=== PATIENT | male | born 1965 | race Hispanic/Latino ===

== ENCOUNTER 2018-07-18 19:26 | Emergency (ER) | payer BC ==
--- NOTE | 2018-07-18 20:39 | ER ---
Nurse's Notes [facility] Name: Ant Gross Sr Age: 53 yrs Sex: Male : 1965 Arrival Date: 07/18/2018 Time: 19:26 Bed 17 Private MD: Diagnosis: Cellulitis of neck Presentation: 07/18 19:36 Presenting complaint: Patient states: Abscess to back of neck for 4 days. Transition of aj care: patient was not received from another setting of care. Onset of symptoms was July 14, 2018. Risk Assessment: Do you want to hurt yourself or someone else? Patient reports no desire to harm self or others. Initial Sepsis Screen: Does the patient meet any 2 criteria? No. Patient's initial sepsis screen is negative. Does the patient have a suspected source of infection? No. Patient's initial sepsis screen is negative. Care prior to arrival: None. 19:36 Method Of Arrival: Ambulatory aj 19:36 Acuity: DAVID 3 aj Triage Assessment: 19:37 General: Appears in no apparent distress. comfortable, Behavior is calm, cooperative, aj appropriate for age. Pain: Complains of pain in base of the skull. Neuro: Level of Consciousness is awake, alert, obeys commands, Oriented to person, place, time, situation, Appropriate for age. Respiratory: Airway is patent Respiratory effort is even, unlabored, Respiratory pattern is regular, symmetrical. Derm: Skin is intact, is healthy with good turgor, Skin is pink, warm \T\ dry. normal, Abscess located on base of the skull. Historical: - Allergies: 19:37 No Known Allergies; aj - Home Meds: 19:37 None [Active]; aj - PMHx: 19:37 Diabetes - NIDDM; Hypertension; aj - PSHx: 19:37 None; aj - Immunization history:: Adult Immunizations up to date. - Social history:: Smoking status: Patient/guardian denies using tobacco. - Ebola Screening: : Patient negative for fever greater than or equal to 101.5 degrees Fahrenheit, and additional compatible Ebola Virus Disease symptoms Patient denies exposure to infectious person Patient denies travel to an Ebola-affected area in the 21 days before illness onset No symptoms or risks identified at this time. Screenin:44 Abuse screen: Denies threats or abuse. Denies injuries from another. Nutritional cc3 screening: No deficits noted. Tuberculosis screening: No symptoms or risk factors identified. Fall Risk Ambulatory Aid- None/Bed Rest/Nurse Assist (0 pts). Gait- Normal/Bed Rest/Wheelchair (0 pts) Mental Status- Oriented to own ability (0 pts). Assessment: 19:44 General: see triage assessment. cc3 20:30 Reassessment: Patient appears in no apparent distress at this time. Patient and/or cc3 family updated on plan of care and expected duration. Pain level reassessed. Patient is alert, oriented x 3, equal unlabored respirations, skin warm/dry/pink. 21:00 Reassessment: Patient appears in no apparent distress at this time. Patient and/or cc3 family updated on plan of care and expected duration. Pain level reassessed. Patient is alert, oriented x 3, equal unlabored respirations, skin warm/dry/pink. Patient discharged home with prescription given. No IV cannula in situ. Patient left ER vitally stable and ambulatory. Vital Signs: 19:37 BP 158 / 95; Pulse 70; Resp 19; Temp 97.1; Pulse Ox 97% on R/A; Weight 117.93 kg; aj Height 5 ft. 11 in. (180.34 cm); 20:45 BP 143 / 87; Pulse 72; Resp 18 S; Pulse Ox 97% on R/A; cc3 19:37 Body Mass Index 36.26 (117.93 kg, 180.34 cm) aj ED Course: 19:26 Patient arrived in ED. mr 19:37 Triage completed. aj 19:37 Arm band placed on left wrist. Patient placed in an exam room. aj 19:44 Radha Groves is Primary Nurse. cc3 19:44 Patient has correct armband on for positive identification. Bed in low position. Call cc3 light in reach. Side rails up X 1. Pulse ox on. NIBP on. 20:07 Rudy Merino NP is PHCP. pm1 20:07 Colt Ayers MD is Attending Physician. pm1 20:40 Zi Hankins MD is Referral Physician. pm1 21:00 No provider procedures requiring assistance completed. Patient did not have IV access cc3 during this emergency room visit. Administered Medications: 20:50 Drug: Tetanus-Diphtheria Toxoid Adult 0.5 ml {[employer] Set Up Operator: [employer]. Exp: cc3 09/18/2020. Lot #: [id number]. } Route: IM; Site: right deltoid; 21:00 Follow up: Response: No adverse reaction cc3 Point of Care Testing: Blood Glucose: 20:35 Blood Glucose: 271 mg/dL; wi Ranges: Outcome: 20:38 Discharge ordered by MD. pm1 21:00 Discharged to home ambulatory. cc3 21:00 Condition: stable 21:00 Discharge instructions given to patient, Instructed on discharge instructions, follow up and referral plans. medication usage, Demonstrated understanding of instructions, follow-up care, medications, Prescriptions given X 2. 21:06 Patient left the ED. cc3 Signatures: Sandra Smith RN RN aj Rivera, Mary mr Marinas, Patrick, WICHO ASSESSMENT EXPERT pm1 Meron Patricia mt, Charlene cc3
--- NOTE | 2018-07-18 20:39 | EDPHYS ---
Physician Documentation [facility] Name: Ant Gross Sr Age: 53 yrs Sex: Male : 1965 Arrival Date: 07/18/2018 Time: 19:26 Bed 17 Private MD: ED Physician Colt Ayers HPI: 07/18 20:30 This 53 yrs old Male presents to ER via Ambulatory with complaints of Knot on pm1 Neck. 20:30 Onset: The symptoms/episode began/occurred 4 day(s) ago. Associated signs and symptoms: pm1 Pertinent negatives: fever. 20:30 The patient presents with cellulitis of the posterior cervical area. Possible cause(s): pm1 unknown. Modifying factors: the symptoms are alleviated by nothing, the symptoms are aggravated by touching, Squeezing. Son tried to needle aspirate yesterday without any drainage. The patient has experienced a previous episode, approximately 1 years ago. Historical: - Allergies: 19:37 No Known Allergies; aj - Home Meds: 19:37 None [Active]; aj - PMHx: 19:37 Diabetes - NIDDM; Hypertension; aj - PSHx: 19:37 None; aj - Immunization history:: Adult Immunizations up to date. - Social history:: Smoking status: Patient/guardian denies using tobacco. - Ebola Screening: : Patient negative for fever greater than or equal to 101.5 degrees Fahrenheit, and additional compatible Ebola Virus Disease symptoms Patient denies exposure to infectious person Patient denies travel to an Ebola-affected area in the 21 days before illness onset No symptoms or risks identified at this time. ROS: 20:30 Constitutional: Negative for fever, chills, and weight loss, Eyes: Negative for injury, pm1 pain, redness, and discharge, ENT: Negative for injury, pain, and discharge, Neck: Negative for injury, pain, and swelling, Cardiovascular: Negative for chest pain, palpitations, and edema, Respiratory: Negative for shortness of breath, cough, wheezing, and pleuritic chest pain, Abdomen/GI: Negative for abdominal pain, nausea, vomiting, diarrhea, and constipation, Back: Negative for injury and pain, MS/Extremity: Negative for injury and deformity. 20:30 Neuro: Negative for headache, weakness, numbness, tingling, and seizure. 20:30 Skin: Positive for cellulitis, of the posterior cervical area. Exam: 20:30 Constitutional: This is a well developed, well nourished patient who is awake, alert, pm1 and in no acute distress. Head/Face: Normocephalic, atraumatic. Eyes: Pupils equal round and reactive to light, extra-ocular motions intact. Lids and lashes normal. Conjunctiva and sclera are non-icteric and not injected. Cornea within normal limits. Periorbital areas with no swelling, redness, or edema. ENT: Nares patent. No nasal discharge, no septal abnormalities noted. Tympanic membranes are normal and external auditory canals are clear. Oropharynx with no redness, swelling, or masses, exudates, or evidence of obstruction, uvula midline. Mucous membranes moist. 20:30 Neck: Trachea midline, no thyromegaly or masses palpated, and no cervical lymphadenopathy. Supple, full range of motion without nuchal rigidity, or vertebral point tenderness. No Meningismus. Chest/axilla: Normal chest wall appearance and motion. Nontender with no deformity. No lesions are appreciated. Cardiovascular: Regular rate and rhythm with a normal S1 and S2. No gallops, murmurs, or rubs. Normal PMI, no JVD. No pulse deficits. Respiratory: Lungs have equal breath sounds bilaterally, clear to auscultation and percussion. No rales, rhonchi or wheezes noted. No increased work of breathing, no retractions or nasal flaring. Abdomen/GI: Soft, non-tender, with normal bowel sounds. No distension or tympany. No guarding or rebound. No evidence of tenderness throughout. Back: No spinal tenderness. No costovertebral tenderness. Full range of motion. 20:30 MS/ Extremity: Pulses equal, no cyanosis. Neurovascular intact. Full, normal range of motion. 20:30 Skin: Appearance: normal except for affected area, cellulitis, that is mild, on the posterior cervical area, needle aspiration performed and no purulent drainage obtained. No fluctuance present. 20:30 Neuro: Orientation: is normal, Motor: is normal, moves all fours. Vital Signs: 19:37 BP 158 / 95; Pulse 70; Resp 19; Temp 97.1; Pulse Ox 97% on R/A; Weight 117.93 kg; aj Height 5 ft. 11 in. (180.34 cm); 20:45 BP 143 / 87; Pulse 72; Resp 18 S; Pulse Ox 97% on R/A; cc3 19:37 Body Mass Index 36.26 (117.93 kg, 180.34 cm) aj MDM: 20:07 Patient medically screened. pm1 20:37 Data reviewed: vital signs. Data interpreted: Pulse oximetry: on room air is 97 %. pm1 Interpretation: normal. Counseling: I had a detailed discussion with the patient and/or guardian regarding: the historical points, exam findings, and any diagnostic results supporting the discharge/admit diagnosis, lab results, the need for outpatient follow up, to return to the emergency department if symptoms worsen or persist or if there are any questions or concerns that arise at home. 20:37 ED course: Instructed patient to start taking his diabetes medications again. His pm1 compliance is the likely cause of his cellulitis to his neck. 07/18 20:33 Order name: Finger Stick; Complete Time: 20:51 pm1 Administered Medications: 20:50 Drug: Tetanus-Diphtheria Toxoid Adult 0.5 ml {Research And Development Manager: [employer]. Exp: cc3 09/18/2020. Lot #: [id number]. } Route: IM; Site: right deltoid; 21:00 Follow up: Response: No adverse reaction cc3 Point of Care Testing: Blood Glucose: 20:35 Blood Glucose: 271 mg/dL; ne Ranges: Critical Glucose Levels:Adult <50 mg/dl or >400 mg/dl <40 mg/dl or >180 mg/dl Disposition: 07/19 06:06 Co-signature as Attending Physician, Colt Ayers MD I agree with the assessment and gray plan of care. Disposition: 07/18/18 20:38 Discharged to Home. Impression: Cellulitis of neck. - Condition is Stable. - Discharge Instructions: Cellulitis, Adult. - Prescriptions for Bactrim DS 800- 160 mg Oral Tablet - take 1 tablet by ORAL route every 12 hours for 10 days; 20 tablet. Clindamycin HCl 300 mg Oral Capsule - take 1 capsule by ORAL route every 6 hours for 10 days; 40 capsule. - Medication Reconciliation Form, Thank You Letter, Antibiotic Education form. - Follow up: Emergency Department; When: As needed; Reason: Worsening of condition. Follow up: Private Physician; When: 2 - 3 days; Reason: Recheck today's complaints, Continuance of care, Re-evaluation by your physician. Follow up: Zi Hankins MD; When: 2 - 3 days; Reason: Recheck today's complaints, Continuance of care, Re-evaluation by your physician. - Problem is new. - Symptoms have improved. Signatures: Sandra Smith RN RN aj Anderson, Corey, MD MD cha Marinas, Patrick, WARDROBE CUSTODIAN WARDROBE CUSTODIAN pm1 Wadefranco Radha cc3 Corrections: (The following items were deleted from the chart) 07/18 20:40 20:38 07/18/2018 20:38 Discharged to Home. Impression: Cellulitis of neck. Condition is pm1 Stable. Forms are Medication Reconciliation Form, Thank You Letter, Antibiotic Education, Prescription Opioid Use. Follow up: Emergency Department; When: As needed; Reason: Worsening of condition. Follow up: Private Physician; When: 2 - 3 days; Reason: Recheck today's complaints, Continuance of care, Re-evaluation by your physician. Problem is new. Symptoms have improved. pm1 21:06 20:40 07/18/2018 20:38 Discharged to Home. Impression: Cellulitis of neck. Condition is cc3 Stable. Discharge Instructions: Cellulitis, Adult. Prescriptions for Bactrim DS 800-160 mg Oral Tablet - take 1 tablet by ORAL route every 12 hours for 10 days; 20 tablet, Clindamycin HCl 300 mg Oral Capsule - take 1 capsule by ORAL route every 6 hours for 10 days; 40 capsule. and Forms are Medication Reconciliation Form, Thank You Letter, Antibiotic Education. Follow up: Emergency Department; When: As needed; Reason: Worsening of condition. Follow up: Private Physician; When: 2 - 3 days; Reason: Recheck today's complaints, Continuance of care, Re-evaluation by your physician. Follow up: Zi Hankins; When: 2 - 3 days; Reason: Recheck today's complaints, Continuance of care, Re-evaluation by your physician. Problem is new. Symptoms have improved. pm1
[2018-07-18] MEDS ORDERED: TETANUS & DIPHTHERIA TOX,ADULT 0.5 ML VIAL ONE (21:03)
[2018-07-18 21:19] VITALS: BP 158/95; TEMP 97.1; O2SAT 97
== END 2018-07-18 21:06 | disposition home or self-care (01) ==
LOC: ER 19:26
DX: L03.221 Cellulitis of neck (principal); I10 Essential (primary) hypertension; E11.9 Type 2 diabetes mellitus without complications; Z23 Encounter for immunization
CPT/HCPCS: 82962; 90714; 99283

== ENCOUNTER 2018-10-04 10:48 | Emergency (ER) | payer BC ==
--- NOTE | 2018-10-04 12:27 | RAD REPORT ---
EXAM DESCRIPTION: RAD - Chest Pa And Lat (2 Views) - 10/04/2018 12:21 pm CLINICAL HISTORY: COUGH Chest pain. COMPARISON: CHEST SINGLE VIEW dated 10/04/2012; CHEST SINGLE VIEW dated 10/04/2010 FINDINGS: Peribronchial cuffing is seen in both hilar regions with mild interstitial prominence. No focal consolidation typical of pneumonia identified. The heart is normal in size. No displaced fractu res. IMPRESSION: Findings suggest underlying viral pneumonitis and/or reactive airway disease.
--- NOTE | 2018-10-04 12:35 | ER ---
Nurse's Notes [facility] Name: Ant Gross Sr Age: 53 yrs Sex: Male : 1965 Arrival Date: 10/04/2018 Time: 10:51 Bed 10 Private MD: Diagnosis: Acute upper respiratory infection, unspecified;Diarrhea, unspecified Presentation: 10/04 10:53 Presenting complaint: Patient states: mariusz been sick since Sunday, diarrhea, Sunday, hj back cramps, body aches and cough and fever; took Robitussin last night; reports sore throat;. Transition of care: patient was not received from another setting of care. Onset of symptoms was October 04, 2018. Risk Assessment: Do you want to hurt yourself or someone else? Patient reports no desire to harm self or others. Initial Sepsis Screen: Does the patient meet any 2 criteria? No. Patient's initial sepsis screen is negative. Does the patient have a suspected source of infection? No. Patient's initial sepsis screen is negative. Care prior to arrival: None. 10:53 Method Of Arrival: Ambulatory 10:53 Acuity: DAVID 4 hj Triage Assessment: 10:55 General: Appears in no apparent distress. uncomfortable, Behavior is calm, cooperative, hj appropriate for age. Pain: Complains of pain in throat, body. Historical: - Allergies: 10:55 No Known Allergies; hj - Home Meds: 10:55 None [Active]; hj - PMHx: 10:55 Diabetes - NIDDM; Hypertension; hj - PSHx: 10:55 None; hj - Immunization history:: Adult Immunizations not up to date. - Social history:: Smoking status: Patient/guardian denies using tobacco, Patient/guardian denies using alcohol. - Ebola Screening: : Patient negative for fever greater than or equal to 101.5 degrees Fahrenheit, and additional compatible Ebola Virus Disease symptoms Patient denies exposure to infectious person Patient denies travel to an Ebola-affected area in the 21 days before illness onset. Screenin:56 Abuse screen: Denies threats or abuse. Denies injuries from another. Nutritional hj screening: No deficits noted. Tuberculosis screening: No symptoms or risk factors identified. Fall Risk None identified. Assessment: 11:30 General: Appears in no apparent distress. comfortable, Behavior is calm, cooperative. iw Pain: Complains of pain in head. Neuro: Level of Consciousness is awake, alert, obeys commands, Oriented to person, place, time, situation, Moves all extremities. Full function. Cardiovascular: Patient's skin is warm and dry. Respiratory: Reports cough that is Respiratory effort is even, unlabored, Respiratory pattern is regular, symmetrical, Breath sounds are clear bilaterally. GI: Reports diarrhea. Derm: Skin is intact, is healthy with good turgor. Musculoskeletal: Range of motion: intact in all extremities. Vital Signs: 10:56 BP 125 / 84; Pulse 74; Resp 18; Temp 99.8(O); Pulse Ox 98% on R/A; Weight 108.86 kg; hj Height 5 ft. 11 in. (180.34 cm); Pain 9/10; 10:56 Body Mass Index 33.47 (108.86 kg, 180.34 cm) ED Course: 10:51 Patient arrived in ED. mr 10:55 Triage completed. hj 10:56 Arm band placed on left wrist. hj 10:56 Patient has correct armband on for positive identification. Bed in low position. Call light in reach. Side rails up X 1. 10:58 Mary Almanzar, JUSTO is Primary Nurse. iw 11:01 Aly Lynn PA is PHCP. jr8 11:01 Caio Acuna MD is Attending Physician. jr8 12:20 X-ray completed. Patient tolerated procedure well. Patient moved to radiology via jb2 wheelchair. Patient moved back from radiology. 12:21 XRAY Chest Pa And Lat (2 Views) In Process Unspecified. EDMS 13:21 No provider procedures requiring assistance completed. Patient did not have IV access iw during this emergency room visit. Administered Medications: No medications were administered Point of Care Testing: Blood Glucose: 12:36 Blood Glucose: 296 mg/dL; mh5 Ranges: Outcome: 12:34 Discharge ordered by . jr8 13:21 Discharged to home ambulatory. iw 13:21 Condition: good 13:21 Discharge instructions given to patient, Instructed on discharge instructions, follow up and referral plans. medication usage, Demonstrated understanding of instructions, follow-up care, medications, Prescriptions given X 13:21 Prescriptions given X 3. iw 13:22 Patient left the ED. Signatures: Dispatcher [employer] EDMS Ana Ge RN RN ch Rivera, Meri mr Buechter, Donaldo jb2 Mary Almanzar, Aly Lomeli RN, PA PA jr8 Virgil Silva RN RN hj Martinez, Maria 5 Corrections: (The following items were deleted from the chart) 10:58 10:56 Pulse 74bpm; Resp 18bpm; Pulse Ox 98% RA; Temp 99.8F Oral; 108.86 kg; Height 5 hj ft. 11 in.; BMI: 33.4; Pain 06/10; hj
--- NOTE | 2018-10-04 12:36 | EDPHYS ---
Physician Documentation [facility] Name: Ant Gross Sr Age: 53 yrs Sex: Male : 1965 Arrival Date: 10/04/2018 Time: 10:51 Bed 10 Private MD: ED Physician Caio Acuna HPI: 10/04 11:43 This 53 yrs old Male presents to ER via Ambulatory with complaints of Flu jr8 Symptoms. 11:43 Patient complains to nausea, diarrhea, body aches, chills, cough, sore throat, jr8 rhinorrhea since this past Sunday. Feeling weak and fatigued . Severity of symptoms: At their worst the symptoms were moderate in the emergency department the symptoms are unchanged. The patient has not experienced similar symptoms in the past. The patient has not recently seen a physician. Historical: - Allergies: 10:55 No Known Allergies; hj - Home Meds: 10:55 None [Active]; hj - PMHx: 10:55 Diabetes - NIDDM; Hypertension; hj - PSHx: 10:55 None; hj - Immunization history:: Adult Immunizations not up to date. - Social history:: Smoking status: Patient/guardian denies using tobacco, Patient/guardian denies using alcohol. - Ebola Screening: : Patient negative for fever greater than or equal to 101.5 degrees Fahrenheit, and additional compatible Ebola Virus Disease symptoms Patient denies exposure to infectious person Patient denies travel to an Ebola-affected area in the 21 days before illness onset. ROS: 11:43 Eyes: Negative for injury, pain, redness, and discharge, Neck: Negative for injury, jr8 pain, and swelling, Cardiovascular: Negative for chest pain, palpitations, and edema, Back: Negative for injury and pain, MS/Extremity: Negative for injury and deformity, Skin: Negative for injury, rash, and discoloration, Neuro: Negative for headache, weakness, numbness, tingling, and seizure. 11:43 Constitutional: Positive for body aches, chills, fever, malaise. 11:43 ENT: Positive for rhinorrhea, sinus congestion, sore throat. 11:43 Respiratory: Positive for cough, Negative for shortness of breath, sputum production, wheezing. 11:43 Abdomen/GI: Positive for nausea, diarrhea, Negative for abdominal pain, vomiting, abdominal cramps, abdominal distension, anorexia, dysphagia, hematemesis, black/tarry stool, rectal pain, rectal bleeding, bowel incontinence, flatulence. Exam: 11:45 Eyes: Pupils equal round and reactive to light, extra-ocular motions intact. Lids and jr8 lashes normal. Conjunctiva and sclera are non-icteric and not injected. Cornea within normal limits. Periorbital areas with no swelling, redness, or edema. ENT: Nares patent. No nasal discharge, no septal abnormalities noted. Tympanic membranes are normal and external auditory canals are clear. Oropharynx with no redness, swelling, or masses, exudates, or evidence of obstruction, uvula midline. Mucous membranes moist. Neck: Trachea midline, no thyromegaly or masses palpated, and no cervical lymphadenopathy. Supple, full range of motion without nuchal rigidity, or vertebral point tenderness. No Meningismus. Cardiovascular: Regular rate and rhythm with a normal S1 and S2. No gallops, murmurs, or rubs. Normal PMI, no JVD. No pulse deficits. Respiratory: Lungs have equal breath sounds bilaterally, clear to auscultation and percussion. No rales, rhonchi or wheezes noted. No increased work of breathing, no retractions or nasal flaring. Abdomen/GI: Soft, non-tender, with normal bowel sounds. No distension or tympany. No guarding or rebound. No evidence of tenderness throughout. Back: No spinal tenderness. No costovertebral tenderness. Full range of motion. Skin: Warm, dry with normal turgor. Normal color with no rashes, no lesions, and no evidence of cellulitis. MS/ Extremity: Pulses equal, no cyanosis. Neurovascular intact. Full, normal range of motion. Neuro: Awake and alert, GCS 15, oriented to person, place, time, and situation. Cranial nerves II-XII grossly intact. Motor strength 5/5 in all extremities. Sensory grossly intact. Cerebellar exam normal. Normal gait. Vital Signs: 10:56 BP 125 / 84; Pulse 74; Resp 18; Temp 99.8(O); Pulse Ox 98% on R/A; Weight 108.86 kg; hj Height 5 ft. 11 in. (180.34 cm); Pain 9/10; 10:56 Body Mass Index 33.47 (108.86 kg, 180.34 cm) hj MDM: 11:01 Patient medically screened. jr8 12:33 Data reviewed: vital signs, nurses notes, lab test result(s), radiologic studies, plain jr8 films, and as a result, I will discharge patient. Data interpreted: Pulse oximetry: on room air is 98 %. Interpretation: normal. Counseling: I had a detailed discussion with the patient and/or guardian regarding: the historical points, exam findings, and any diagnostic results supporting the discharge/admit diagnosis, lab results, radiology results, the need for outpatient follow up, a family practitioner, to return to the emergency department if symptoms worsen or persist or if there are any questions or concerns that arise at home. 10/04 10:57 Order name: Flu; Complete Time: 11:35 10/04 10:57 Order name: Strep; Complete Time: 11:35 10/04 11:22 Order name: Throat Culture EDMS 10/04 11:35 Order name: XRAY Chest Pa And Lat (2 Views); Complete Time: 12:30 jr8 Administered Medications: No medications were administered Point of Care Testing: Blood Glucose: 12:36 Blood Glucose: 296 mg/dL; mh5 Ranges: Critical Glucose Levels:Adult <50 mg/dl or >400 mg/dl <40 mg/dl or >180 mg/dl Disposition: 10/04/18 12:34 Discharged to Home. Impression: Acute upper respiratory infection, unspecified, Diarrhea, unspecified. - Condition is Stable. - Discharge Instructions: Diarrhea, Adult, Upper Respiratory Infection, Adult. - Prescriptions for Tessalon Perles 100 mg Oral Capsule - take 1 capsule by ORAL route every 8 hours As needed; 15 capsule. Albuterol Sulfate 90 mcg/actuation - inhale 1-2 puff by INHALATION route every 4-6 hours; 1 Inhaler. Guaifenesin AC 10- 100 mg/5 mL Oral Liquid - take 10 milliliter by ORAL route every 4 hours As needed; 240 milliliter. Zofran 4 mg Oral Tablet - take 1 tablet by ORAL route every 12 hours As needed; 20 tablet. - Medication Reconciliation Form, Thank You Letter, Antibiotic Education, Prescription Opioid Use form. - Follow up: Private Physician; When: 2 - 3 days; Reason: Recheck today's complaints, Continuance of care, Re-evaluation by your physician. - Problem is new. - Symptoms have improved. Addendum: 10/17/2018 07:27 Co-signature as Attending Physician, Caio Acuna MD I agree with the assessment and k plan of care. Signatures: Dispatcher [employer] EDMS Ana Ge, RN RN Caio Acuna MD MD [facility] Aly Lynn PA PA jr8 Virgil Silva RN RN Corrections: (The following items were deleted from the chart) 10/04 13:22 12:34 10/04/2018 12:34 Discharged to Home. Impression: Acute upper respiratory ch infection, unspecified; Diarrhea, unspecified. Condition is Stable. Forms are Medication Reconciliation Form, Thank You Letter, Antibiotic Education, Prescription Opioid Use. Follow up: Private Physician; When: 2 - 3 days; Reason: Recheck today's complaints, Continuance of care, Re-evaluation by your physician. Problem is new. Symptoms have improved. jr8
[2018-10-04 13:28] VITALS: BP 125/84; TEMP 99.8; O2SAT 98
== END 2018-10-04 13:22 | disposition home or self-care (01) ==
LOC: ER 10:48
DX: J06.9 Acute upper respiratory infection, unspecified (principal); R19.7 Diarrhea, unspecified; I10 Essential (primary) hypertension
CPT/HCPCS: 71046; 82962; 87070; 87081; 87804; 99283

== ENCOUNTER 2021-04-16 08:43 | Emergency (ER) | payer BC ==
--- NOTE | 2021-04-16 09:25 | EDPHYS ---
Physician Documentation [facility] Name: Ant Gross Sr Age: 56 yrs Sex: Male : 1965 Arrival Date: 04/16/2021 Time: 08:45 Bed 24 Private MD: Candace Bolanos ED Physician Mele Zepeda HPI: 04/16 09:23 This 56 yrs old Male presents to ER via Ambulatory with complaints of Facial pm1 Swelling. 17:09 The patient presents with pain, swelling. The problem is located in the upper left pm1 central incisor, upper left lateral incisor and upper left cuspid. Onset: The symptoms/episode began/occurred 2 day(s) ago. Duration: The symptoms are continuous. Modifying factors: The symptoms are alleviated by nothing, the symptoms are aggravated by warm compress . Associated signs and symptoms: Pertinent positives: swelling, Pertinent negatives: fever, inability to eat. Severity of symptoms: in the emergency department the symptoms are actually worse. The patient has experienced similar episodes in the past, several times. The patient has not recently seen a physician. Historical: - Allergies: 08:54 No Known Allergies; ll1 - PMHx: 08:54 Diabetes - NIDDM; Hypertension; ll1 - PSHx: 08:54 None; ll1 - Immunization history:: Client reports having NOT received the Covid vaccine. Flu vaccine is not up to date. - Social history:: Smoking status: Patient denies any tobacco usage or history of. ROS: 17:09 Constitutional: Negative for fever, chills, and weight loss. pm1 17:09 Cardiovascular: Negative for chest pain, palpitations, and edema, Respiratory: Negative for shortness of breath, cough, wheezing, and pleuritic chest pain. 17:09 MS/Extremity: Negative for injury and deformity, Skin: Negative for injury, rash, and discoloration. 17:09 ENT: Positive for dental pain, Negative for ear pain, sore throat, difficulty swallowing, difficulty handling secretions. 17:09 All other systems are negative. Exam: 17:09 Constitutional: This is a well developed, well nourished patient who is awake, alert, pm1 and in no acute distress. Head/Face: Normocephalic, atraumatic. 17:09 Skin: Warm, dry with normal turgor. Normal color with no rashes, no lesions, and no evidence of cellulitis. MS/ Extremity: Pulses equal, no cyanosis. Neurovascular intact. Full, normal range of motion. 17:09 ENT: Mouth: Lips: normal, Oral mucosa: normal, Gums: normal with healthy appearance, Dental exam: dental caries, that is severe, diffusely, specifically in the upper left central incisor (#9), upper left lateral incisor (#10) and upper left cuspid (#11), negative for trismus. 17:09 Cardiovascular: Rate: normal, Rhythm: regular, Pulses: no pulse deficits are appreciated. 17:09 Respiratory: Exam negative for acute changes, respiratory distress, shortness of breath. 17:09 Neuro: Exam negative for acute changes, Orientation: is normal, Mentation: is normal, Motor: is normal, moves all fours. Vital Signs: 08:55 BP 187 / 93; Pulse 63; Resp 17; Temp 97.5; Pulse Ox 96% ; Weight 117.93 kg; Height 5 ll1 ft. 11 in. (180.34 cm); Pain 10/10; 10:02 BP 168 / 90; Pulse 70; Resp 17; Pulse Ox 96% ; ss 08:55 Body Mass Index 36.26 (117.93 kg, 180.34 cm) ll1 MDM: 09:05 Patient medically screened. pm1 09:23 Data reviewed: vital signs. Data interpreted: Pulse oximetry: on room air is 96 %. pm1 Interpretation: normal. Counseling: I had a detailed discussion with the patient and/or guardian regarding: the historical points, exam findings, and any diagnostic results supporting the discharge/admit diagnosis, the need for outpatient follow up, for definitive care, a dentist, to return to the emergency department if symptoms worsen or persist or if there are any questions or concerns that arise at home. 09:26 ED course: [place] reviewed. Patient found but no prescriptions. pm1 Administered Medications: 09:42 Drug: Clindamycin 600 mg Route: IM; Site: right gluteus; ss 10:02 Follow up: Response: No adverse reaction ss Disposition: 10:06 Co-signature as Attending Physician, Mele Zepeda MD. rn Disposition Summary: 04/16/21 09:24 Discharge Ordered Location: Home pm1 Problem: new pm1 Symptoms: have improved pm1 Condition: Stable pm1 Diagnosis - Periapical abscess without sinus pm1 Followup: pm1 - With: Emergency Department - When: As needed - Reason: Worsening of condition Followup: pm1 - With: Private Physician - When: 2 - 3 days - Reason: Recheck today's complaints, Continuance of care, Re-evaluation by your physician Discharge Instructions: - Discharge Summary Sheet pm1 - Dental Pain pm1 - Diet and Dental Disease pm1 Forms: - Medication Reconciliation Form pm1 - Thank You Letter pm1 - Antibiotic Education pm1 - Prescription Opioid Use pm1 Prescriptions: - Clindamycin HCl 300 mg Oral Capsule - take 1 capsule by ORAL route every 6 hours for 10 days; 40 capsule; Refills: 0, pm1 Product Selection Permitted - Tramadol 50 mg Oral Tablet - take 1 tablet by ORAL route every 8 hours as needed; 12 tablet; Refills: 0, pm1 Product Selection Permitted Signatures: Mele Zepeda MD MD rn Smirch, Shelby, RN RN ss Rudy Merino, [employer] pm1 Shirley Oconnor RN RN 1
--- NOTE | 2021-04-16 09:25 | ER ---
Nurse's Notes [facility] Name: Ant Gross Sr Age: 56 yrs Sex: Male : 1965 Arrival Date: 04/16/2021 Time: 08:45 Bed 24 Private MD: Candace Bolanos Diagnosis: Periapical abscess without sinus Presentation: 04/16 08:55 Chief complaint: Patient states: L upper jaw tooth pain for 2 days. Swelling to L side ll1 of face started throughout the night. Feels hot, but no known fever. + PETTIT. Coronavirus screen: Client denies travel out of the [place] in the last 14 days. At this time, the client does not indicate any symptoms associated with coronavirus-19. Ebola Screen: Patient denies travel to an Ebola-affected area in the 21 days before illness onset. Initial Sepsis Screen: Does the patient meet any 2 criteria? No. Patient's initial sepsis screen is negative. Does the patient have a suspected source of infection? No. Patient's initial sepsis screen is negative. Risk Assessment: Do you want to hurt yourself or someone else? Patient reports no desire to harm self or others. Onset of symptoms was April 15, 2021. 08:55 Method Of Arrival: Ambulatory ll1 08:55 Acuity: DAVID 4 ll1 Triage Assessment: 08:56 General: Appears uncomfortable, Behavior is calm, cooperative, appropriate for age. ss Pain: Complains of pain in L upper jaw Quality of pain is described as aching, throbbing, Aggravated by eating, drinking. EENT: Reports pain in L upper jaw tooth pain. Neuro: No deficits noted. Cardiovascular: No deficits noted. Respiratory: No deficits noted. Historical: - Allergies: 08:54 No Known Allergies; ll1 - PMHx: 08:54 Diabetes - NIDDM; Hypertension; ll1 - PSHx: 08:54 None; ll1 - Immunization history:: Client reports having NOT received the Covid vaccine. Flu vaccine is not up to date. - Social history:: Smoking status: Patient denies any tobacco usage or history of. Screenin:01 Abuse screen: Denies threats or abuse. Nutritional screening: No deficits noted. ss Tuberculosis screening: No symptoms or risk factors identified. Fall Risk Total Martin Fall Scale indicates No Risk (0-24 pts). Vital Signs: 08:55 BP 187 / 93; Pulse 63; Resp 17; Temp 97.5; Pulse Ox 96% ; Weight 117.93 kg; Height 5 ll1 ft. 11 in. (180.34 cm); Pain 10/10; 10:02 BP 168 / 90; Pulse 70; Resp 17; Pulse Ox 96% ; ss 08:55 Body Mass Index 36.26 (117.93 kg, 180.34 cm) ll1 ED Course: 08:45 Patient arrived in ED. mr 08:46 Candace Bolanos is Private Physician. mr 08:54 Arm band placed on. ll1 08:57 Triage completed. ll1 09:05 Rud[facility] Merino [facility]. pm1 09:05 Mele Zepeda MD is Attending Physician. pm1 10:01 Patient has correct armband on for positive identification. Bed in low position. Call ss light in reach. Side rails up X 1. Cardiac monitoring not applicable on this patient. 10:02 No provider procedures requiring assistance completed. Patient did not have IV access ss during this emergency room visit. Administered Medications: 09:42 Drug: Clindamycin 600 mg Route: IM; Site: right gluteus; ss 10:02 Follow up: Response: No adverse reaction ss Outcome: 09:24 Discharge ordered by . pm1 10:02 Discharged to home ambulatory. ss 10:02 Condition: stable 10:02 Discharge instructions given to patient, Instructed on discharge instructions, follow up and referral plans. no drinking with medication, medication usage, Demonstrated understanding of instructions, follow-up care, medications, Prescriptions given X 2. 10:03 Patient left the ED. ss Signatures: Meri Hensley Shelby, RN RN ss Rudy Merino, [employer] pm1 Shirley Oconnor RN RN ll1
[2021-04-16] MEDS ORDERED: CLINDAMYCIN IV 150 MG/ML (4 mL) VIAL ONE (09:59)
[2021-04-16 10:09] VITALS: TEMP 97.5; O2SAT 96
[2021-04-16 10:11] VITALS: BP 168/90
== END 2021-04-16 10:03 | disposition home or self-care (01) ==
LOC: ER 08:43
DX: K04.7 Periapical abscess without sinus (principal); I10 Essential (primary) hypertension
CPT/HCPCS: 96372; 99283; S0077

== ENCOUNTER 2022-05-22 23:21 | Emergency (ER) | payer BC ==
[2022-05-23] MEDS ORDERED: NA CHLORIDE 0.9% 500 ML ONE (00:20)
[2022-05-23] MEDS ORDERED: ONDANSETRON 4 MG/2 ML VIAL ONE (00:20)
[2022-05-23 00:58] LABS: Absolute Lymphocytes (CBC) 1.3 K/uL (0.7-4.9); Hematocrit 36.7 % (39.6-49.0); Lymphocytes % 24.6 % (15.3-44.8); MCV 83.4 fL (80-100); MPV 7.3 fL (7.6-11.3)
[2022-05-23 01:05] LABS: Magnesium 2.2 mg/dL (1.8-2.4); Potassium 3.5 mmol/L (3.5-5.1)
[2022-05-23] MEDS ORDERED: BEBTELOVIMAB 175 MG/2 ML VIAL IV ONE (01:08)
--- NOTE | 2022-05-23 01:38 | ER ---
Nurse's Notes [facility] Name: Ant Gross Sr Age: 57 yrs Sex: Male : 1965 Arrival Date: 05/22/2022 Time: 23:25 Bed Treatment Private MD: Diagnosis: Pneumonia due to SARS-associated coronavirus Presentation: 05/22 23:37 Chief complaint: Patient states: Pt reports cough, headache, sore throat and positive kb3 home covid test this evening. Coronavirus screen: Vaccine status: Patient reports being unvaccinated. Client denies travel out of the [place] in the last 14 days. Ebola Screen: Patient negative for fever greater than or equal to 101.5 degrees Fahrenheit, and additional compatible Ebola Virus Disease symptoms Patient denies exposure to infectious person. Patient denies travel to an Ebola-affected area in the 21 days before illness onset. No symptoms or risks identified at this time. Initial Sepsis Screen: Does the patient meet any 2 criteria? No. Patient's initial sepsis screen is negative. Does the patient have a suspected source of infection? No. Patient's initial sepsis screen is negative. Risk Assessment: Do you want to hurt yourself or someone else? Patient reports no desire to harm self or others. Onset of symptoms was May 21, 2022. 23:37 Method Of Arrival: Ambulatory kb3 23:37 Acuity: DAVID 4 kb3 Triage Assessment: 23:40 General: Appears in no apparent distress. ill, unkempt, Behavior is calm, cooperative. kb3 Pain: Complains of pain in head, chest, abdomen, pelvis, right arm, left arm, right leg and left leg Pain does not radiate. Pain currently is 10 out of 10 on a pain scale. Quality of pain is described as aching. Historical: - Allergies: 23:40 No Known Allergies; kb3 - PMHx: 23:40 Diabetes - NIDDM; Hypertension; kb3 - Immunization history:: Adult Immunizations up to date, Client reports having NOT received the Covid vaccine. Last tetanus immunization: up to date. - Social history:: Smoking status: Patient denies any tobacco usage or history of. Screenin/23 00:25 Abuse screen: Denies threats or abuse. Denies injuries from another. Nutritional tw5 screening: No deficits noted. Tuberculosis screening: No symptoms or risk factors identified. Fall Risk None identified. Assessment: 05/22 23:50 General: Reports "I feel like I have been run over by a truck. I tested postive for tw5 covid at home.". Neuro: No deficits noted. Respiratory: No deficits noted. 05/23 00:25 Reassessment: Patient appears in no apparent distress at this time. No changes from tw5 previously documented assessment. Patient and/or family updated on plan of care and expected duration. Pain level reassessed. Patient is alert, oriented x 3, equal unlabored respirations, skin warm/dry/pink. 02:10 Reassessment: Patient states feeling better. Patient states symptoms have improved. tw5 Vital Signs: 05/22 23:37 BP 175 / 90; Pulse 65; Resp 18; Temp 96.9; Pulse Ox 100% ; Weight 136.08 kg; Height 5 kb3 ft. 11 in. (180.34 cm); Pain 10/10; 05/23 00:25 BP 143 / 79; Pulse 58; Resp 18; Pulse Ox 97% on R/A; Pain 0/10; tw5 01:08 BP 135 / 75; Pulse 57; Resp 18; Pulse Ox 96% ; tw5 02:10 BP 122 / 74; Pulse 18; Pulse Ox 96% on R/A; tw5 05/22 23:37 Body Mass Index 41.84 (136.08 kg, 180.34 cm) kb3 ED Course: 05/22 23:25 Patient arrived in ED. ja2 23:39 [facility] Garcia [facility]. cp 23:39 Colt Ayers MD is Attending Physician. cp 23:40 Triage completed. kb3 23:40 Arm band placed on right wrist. kb3 23:55 Sugey Merrill is Primary Nurse. tw5 23:55 COVID swab sent to lab. Flu and/or RSV swab sent to lab. tw5 05/23 00:13 Influenza Screen (a \\T\\ B) Sent. tw5 00:13 COVID-19 SARS RT PCR (Document "Date of Onset" if Symptomatic) Sent. tw5 00:22 XRAY Chest (1 view) In Process Unspecified. EDMS 00:25 Patient has correct armband on for positive identification. Bed in low position. Pulse tw5 ox on. NIBP on. Door closed. Noise minimized. Moved to private room. 00:25 Initial lab(s) drawn, by me, sent to lab. Inserted saline lock: 20 gauge in left tw5 antecubital area, using aseptic technique. Blood collected. 00:27 Basic Metabolic Panel Sent. 00:27 CBC with Diff Sent. 00:27 Magnesium Sent. 00:48 Basic Metabolic Panel Sent. 00:48 CBC with Diff Sent. 00:48 Magnesium Sent. 00:48 EKG done, by ED staff, reviewed by Colt DANGELO. 02:10 No provider procedures requiring assistance completed. IV discontinued, intact, tw bleeding controlled, No redness/swelling at site. Pressure dressing applied. Administered Medications: 00:27 Drug: Zofran (Ondansetron) 4 mg Route: IVP; Site: left antecubital; 01:04 Follow up: Response: No adverse reaction 00:27 Drug: NS 0.9% 500 ml Route: IV; Rate: bolus; Site: left antecubital; 01:07 Follow up: Response: No adverse reaction; IV Status: Completed infusion; IV Intake: tw5 500ml 01:06 Drug: Bebtelovimab 175 mg {Note: FDA fact sheet provided to Patient.} Route: IV; Rate: calculated rate; Site: left antecubital; 02:04 Follow up: Response: No adverse reaction; IV Status: Completed infusion 02:09 Drug: Dexamethasone 10 mg Route: IVP; Site: left antecubital; 02:10 Follow up: Response: No adverse reaction; Medication administered at discharge. Medication: 00:25 VIS not applicable for this client. Intake: 01:07 IV: 500ml; Total: 500ml. Outcome: 01:37 Discharge ordered by . maki 02:10 Discharged to home ambulatory. 02:10 Condition: stable 02:10 Discharge instructions given to patient, Instructed on discharge instructions, follow up and referral plans. medication usage, Demonstrated understanding of instructions, follow-up care, medications, Prescriptions given X 3. 02:12 Patient left the ED. Signatures: Dispatcher [employer] EDMS Colt Garcia PA PA cp Alexander, Jessica ja2 Wood, Tiffany tw5 Camacho, Suze, RN RN kb3
--- NOTE | 2022-05-23 01:38 | EDPHYS ---
Physician Documentation [facility] Name: Ant Gross Sr Age: 57 yrs Sex: Male : 1965 Arrival Date: 05/22/2022 Time: 23:25 Bed Treatment Private MD: ED Physician Colt Ayers HPI: 05/22 23:50 This 57 yrs old Male presents to ER via Ambulatory with complaints of Covid. cp 23:50 The patient or guardian reports cough, described as moderate, with productive sputum. cp Onset: The symptoms/episode began/occurred 3 day(s) ago. Associated signs and symptoms: Pertinent positives: sore throat, Pertinent negatives: chest pain, diarrhea, fever, vomiting. Severity of symptoms: in the emergency department the symptoms are unchanged despite home interventions. Patient reports taking home COVID-19 test that was positive today. Patient reports being unvaccinated. Historical: - Allergies: 23:40 No Known Allergies; kb3 - PMHx: 23:40 Diabetes - NIDDM; Hypertension; kb3 - Immunization history:: Adult Immunizations up to date, Client reports having NOT received the Covid vaccine. Last tetanus immunization: up to date. - Social history:: Smoking status: Patient denies any tobacco usage or history of. ROS: 23:55 Constitutional: Positive for body aches, Negative for fever, poor PO intake. cp 23:55 Eyes: Negative for injury, pain, redness, and discharge. cp 23:55 ENT: Positive for sore throat, Negative for ear pain, difficulty swallowing, difficulty handling secretions. 23:55 Cardiovascular: Negative for chest pain, edema, palpitations. 23:55 Respiratory: Positive for cough, "sounds productive", Negative for shortness of breath, wheezing. 23:55 Abdomen/GI: Positive for nausea, Negative for abdominal pain, vomiting, diarrhea, constipation. 23:55 Skin: Negative for cellulitis, rash. 23:55 Neuro: Negative for altered mental status, headache, weakness. 23:55 All other systems are negative. Exam: 23:58 Constitutional: The patient appears in no acute distress, alert, awake, cp non-diaphoretic, non-toxic, well developed, well nourished, obese. 23:58 Head/Face: Normocephalic, atraumatic. cp 23:58 Eyes: Periorbital structures: appear normal, Conjunctiva: normal, no exudate, no injection, Lids and lashes: appear normal, bilaterally. 23:58 ENT: External ear(s): are unremarkable, Ear canal(s): are normal, clear, TM's: dullness, bilaterally, Nose: is normal, Mouth: Lips: moist, Oral mucosa: pink and intact, Posterior pharynx: Airway: no evidence of obstruction, patent, Tonsils: no enlargement, no exudate, swelling, is not appreciated, erythema, that is mild. 23:58 Neck: ROM/movement: is normal, is supple, without pain, no range of motions limitations, no meningismus. 23:58 Chest/axilla: Inspection: normal. 23:58 Cardiovascular: Rate: normal, Rhythm: regular, Edema: is not appreciated, JVD: is not appreciated. 23:58 Respiratory: the patient does not display signs of respiratory distress, Respirations: normal, no use of accessory muscles, no retractions, labored breathing, is not present, Breath sounds: bronchial sounds, that are mild, are heard diffusely, stridor, is not appreciated, + upper airway congestion. wheezing: is not appreciated. 23:58 Abdomen/GI: Inspection: obese Palpation: abdomen is soft and non-tender, in all quadrants. 23:58 Back: ROM is 23:58 Neuro: Orientation: to person, place \\T\\ time. Mentation: is normal, Motor: moves all fours, strength is normal. 05/23 00:50 ECG was reviewed by the Attending Physician. cp Vital Signs: 05/22 23:37 BP 175 / 90; Pulse 65; Resp 18; Temp 96.9; Pulse Ox 100% ; Weight 136.08 kg; Height 5 kb3 ft. 11 in. (180.34 cm); Pain 10/10; 05/23 00:25 BP 143 / 79; Pulse 58; Resp 18; Pulse Ox 97% on R/A; Pain 0/10; tw5 01:08 BP 135 / 75; Pulse 57; Resp 18; Pulse Ox 96% ; tw5 02:10 BP 122 / 74; Pulse 18; Pulse Ox 96% on R/A; tw5 05/22 23:37 Body Mass Index 41.84 (136.08 kg, 180.34 cm) kb3 MDM: 05/22 23:45 Patient medically screened. [facility] 05/23 01:37 Data reviewed: vital signs, nurses notes, lab test result(s), EKG, radiologic studies, cp plain films. 01:37 Differential diagnosis: bronchitis, flu, URI, pneumonia, COVID-19, less likely PE. Test cp interpretation: by ED physician or midlevel provider: ECG, plain radiologic studies. Counseling: I had a detailed discussion with the patient and/or guardian regarding: the historical points, exam findings, and any diagnostic results supporting the discharge/admit diagnosis, lab results, radiology results, to return to the emergency department if symptoms worsen or persist or if there are any questions or concerns that arise at home. ED course: VSS. Patient appears non-toxic and no signs of respiratory distress. Will discharge to home for continued monitoring. 05/22 23:46 Order name: COVID-19 SARS RT PCR (Document "Date of Onset" if Symptomatic); Complete cp Time: 01:10 05/23 01:10 Interpretation: Reviewed. 05/22 23:46 Order name: Influenza Screen (a \\T\\ B); Complete Time: 00:50 05/23 00:00 Order name: Basic Metabolic Panel; Complete Time: 01:10 cp 05/23 00:00 Order name: CBC with Diff; Complete Time: 01:10 05/23 00:00 Order name: Magnesium; Complete Time: 01:10 05/23 00:03 Order name: Glucose, Ancillary Testing; Complete Time: 00:50 EDMS 05/23 00:50 Interpretation: Abnormal: GLUC,ANCIL 139. 05/22 23:45 Order name: Accucheck Blood Glucose; Complete Time: 23:51 cp 05/23 00:00 Order name: XRAY Chest (1 view) 05/23 00:00 Order name: EKG; Complete Time: 00:01 cp 05/23 00:00 Order name: EKG - Nurse/Tech; Complete Time: 00:48 cp 05/23 00:00 Order name: IV Saline Lock; Complete Time: 00:27 cp 05/23 00:00 Order name: Labs collected and sent; Complete Time: 00:27 cp 05/23 00:00 Order name: O2 Per Protocol; Complete Time: 00:27 cp 05/23 00:00 Order name: O2 Sat Monitoring; Complete Time: 00:27 cp EC:50 Rate is 54 beats/min. Rhythm is regular. FL interval is prolonged at 204 msec. QRS cp interval is normal. QT interval is normal. T waves are Inverted in lead aVR. Interpreted by me. Reviewed by me. Administered Medications: : Drug: Zofran (Ondansetron) 4 mg Route: IVP; Site: left antecubital; tw5 01:04 Follow up: Response: No adverse reaction tw5 00:27 Drug: NS 0.9% 500 ml Route: IV; Rate: bolus; Site: left antecubital; tw5 01:07 Follow up: Response: No adverse reaction; IV Status: Completed infusion; IV Intake: tw5 500ml 01:06 Drug: Bebtelovimab 175 mg {Note: FDA fact sheet provided to Patient.} Route: IV; Rate: tw5 calculated rate; Site: left antecubital; 02:04 Follow up: Response: No adverse reaction; IV Status: Completed infusion tw5 02:09 Drug: Dexamethasone 10 mg Route: IVP; Site: left antecubital; tw5 02:10 Follow up: Response: No adverse reaction; Medication administered at discharge. tw5 Disposition Summary: 05/23/22 01:37 Discharge Ordered Location: Home cp Problem: new cp Symptoms: have improved cp Condition: Stable cp Diagnosis - Pneumonia due to SARS-associated coronavirus cp Followup: cp - With: Private Physician - When: 1 - 2 days - Reason: Recheck today's complaints Discharge Instructions: - Discharge Summary Sheet cp - Aspirin and Your Heart cp - COVID-19 cp - COVID-19 Frequently Asked Questions cp - 10 Things You Can Do to Manage Your COVID-19 Symptoms at Home - [facility] cp Forms: - Medication Reconciliation Form cp - Thank You Letter cp - Antibiotic Education cp - Prescription Opioid Use cp Prescriptions: - Bromfed DM 2-30-10 mg/5 mL Oral syrup - take 10 milliliter by ORAL route every 4-6 hours; 200 milliliter; Refills: 0, cp Product Selection Permitted - Ibuprofen 800 mg Oral Tablet - take 1 tablet by ORAL route every 8 hours As needed take with food; 30 tablet; cp Refills: 0, Product Selection Permitted - Zithromax Z-Dejuan 250 mg Oral Tablet - take 1 tablet by ORAL route as directed for 5 days Day 1 - take two (2) tablets cp one time. Day 2, 3, 4 , 5 take one (1) tablet once daily.; 6 tablet; Refills: 0, Product Selection Permitted Signatures: Dispatcher [employer] Colt Do MD MD cha Page, Corey, PA PA cp Wood, Tiffany tw5 Suze Sauer, RN RN kb3
[2022-05-23] MEDS ORDERED: dexAMETHasone 10 MG/ML VIAL ONE (02:14)
[2022-05-23 04:56] VITALS: TEMP 96.9
[2022-05-23 05:03] VITALS: O2SAT 96
[2022-05-23 05:05] VITALS: BP 122/74
--- NOTE | 2022-05-23 09:46 | RAD REPORT ---
EXAM DESCRIPTION: RAD - Chest Single View - 05/23/2022 12:16 am CLINICAL HISTORY: The patient is 57 years old and is Male; COUGH TECHNIQUE: Frontal view of the chest. COMPARISON: No relevant prior studies available. FINDINGS: Lungs: Prominent interstitial markings which may indicate interstitial edema. No consoli dation. Prominent pulmonary vasculature. Pleural space: Unremarkable. No pneumothorax. Heart: Unremarkable. Mediastinum: Unremarkable. Bones/joints: Unremarkable. IMPRESSION: Prominent interstitial markings which may indicate interstitial edema. No consolidation. Electronically signed by: Narendra Mclaughlin MD 05/23/2022 12:32 AM CDT Due to temporary technical issues with the PACS/Fluency reporting system, reports are being signed by the in house radiologists without review as a courtesy to insure prompt reporting. The interpreting radiologist is fully responsible for the content of the report
--- NOTE | 2022-05-23 13:48 | EKG ---
Test Date: 2022-05-23 Test Time: 00:42:22 Interventional Physiatrist: MEASUREMENT RESULTS: Intervals: Rate: 54 SC: 204 QRSD: 92 QT: 440 QTc: 417 [place]: P: -8 SC: 204 QRS: -34 T: 38 INTERPRETIVE STATEMENTS: Sinus bradycardia Left axis deviation Minimal voltage criteria for LVH, may be normal variant Abnormal ECG Compared to ECG 07/24/2014 10:15:46 Left-axis deviation now present Left ventricular hypertrophy now present Sinus rhythm no longer present Electronically Signed On 05-23-22 13:47:51 CDT by Tawanda Sanches
== END 2022-05-23 02:12 | disposition home or self-care (01) ==
LOC: ER 23:21
DX: U07.1 COVID-19 (principal); J12.82 Pneumonia due to coronavirus disease 2019; E11.9 Type 2 diabetes mellitus without complications; I10 Essential (primary) hypertension
CPT/HCPCS: 93005; 85025; 80048; 36415; 83735; 82947; 87804 ×2; 71045; U0003; J1100; J7040; J2405